=== PATIENT | female | born 1970 | race Caucasian/White ===

== ENCOUNTER → 2022-07-12 | Outpatient (CLI) | payer MEDICAID, SELFPAY ==
--- NOTE | 2022-07-12 15:59 | NEURO ---
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 Symptoms have been progressing over the last one year. No radicular neck pain. Evaluate for entrapment neuropathy. Findings: Nerve conduction studies were performed in the right and, to a limited extent, left upper extremity. The right median motor study recording the abductor pollicis brevis showed a normal amplitude, normal distal latency and normal conduction velocity. The right ulnar motor study recording the abductor digiti minimi showed a normal amplitude, normal distal latency and normal conduction velocity. Focal slowing was present across the elbow. The right median sensory response recording digit two showed a normal amplitude, latency and conduction velocity. The right ulnar sensory response recording digit five showed a normal amplitude, latency and conduction velocity. The right radial sensory response recording over the extensor snuff box showed a normal amplitude, latency and conduction velocity. The left ulnar motor study recording the abductor digiti minimi showed a normal amplitude, normal distal latency and normal conduction velocity. Focal slowing was present across the elbow. The left ulnar sensory response recording digit five showed a borderline amplitude, normal latency and borderline conduction velocity. Needle EMG of the right upper extremity and cervical paraspinal muscles was performed. No denervation was seen in any muscle. Motor units in the first dorsal interosseous were large amplitude and long duration with reduced recruitment. Motor units in the flexor digitorum profundus (IV) were distant, but recruitment was reduced. All other motor unit morphology, activation and recruitment patterns were normal. Needle EMG of the left upper extremity and cervical paraspinal muscles was performed. No denervation was seen in any muscle. Motor units in the first dorsal interosseous were large amplitude and long duration with reduced recruitment. Motor units in the flexor digitorum profundus (IV) were long duration and polyphasic with reduced recruitment. All other motor unit morphology, activation and recruitment patterns were normal. Impression: This is an abnormal study. 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 The pathophysiology is predominantly demyelination without active secondary axonal loss. In addition, there is no electrophysiologic evidence of a superimposed cervical radiculopathy. Levy Duval D.O. Multi Select Codes Neurology Neurology Interp Codes: 24433-46 Musc test done w/n test comp (interp) (Qty:2) and 36763-09 Nrv cndj test 9-10 studies (interp)
== END | disposition home or self-care (01) ==
PROVIDERS: PCP Physician Assistant Medical; Referring Provider Physician Assistant Medical; Visit Provider Physician Assistant Medical
DX: R20.0 Anesthesia of skin (principal); R29.898 Other symptoms and signs involving the musculoskeletal system
CPT/HCPCS: 95886; 95911

== ENCOUNTER → 2022-07-19 | Outpatient (CLI) | payer MEDICAID, SELFPAY ==
--- NOTE | 2022-07-19 17:05 | NEURO ---
NCS and/or EMG Patient Report Ordering Doctor: Nga Finn DATE OF SERVICE: 07/19/22 Indication: The patient reports that she awakened from sleep in November of 2021 with complete weakness and numbness of both lower extremities. The right leg gradually returned function and is now symptom free. The left continues to be numb and weak. She reports having difficulty moving the ankle. There is no associated axial or radicular back pain. Findings: Nerve conduction studies were performed in the right and left lower extremities. The right peroneal motor study recording the extensor digitorum brevis showed a normal amplitude, prolonged distal latency and normal conduction velocity. Right sural sensory response showed a reduced amplitude and normal conduction velocity. Right superficial peroneal sensory response showed a reduced amplitude and normal conduction velocity. The left peroneal motor study recording the extensor digitorum brevis was absent. The left peroneal motor study recording the tibialis anterior showed a borderline amplitude, normal distal latency and slowed conduction velocity. The left tibial motor study recording the abductor hallucis brevis was absent. Left sural sensory response was absent. Left superficial peroneal sensory response was absent. Needle EMG of the left lower extremity and lumbar paraspinal muscles was performed. No denervation was present in any muscle. Motor units in the tibialis anterior, extensor hallucis longus, medial gastrocnemius, and biceps femoris showed changes consistent with reinnervation. The vastus medialis, tensor fascia latae and paraspinal muscles were normal. Impression: This is an abnormal and complex, but limited study. 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 There is no active denervation to suggest ongoing motor axonal loss. A more generalized disorder such as a peripheral polyneuropathy is less likely given the asymmetry of nerve conduction studies and the robust sensory responses in the upper extremities on prior evaluations. Given the history (laying supine for a prolonged period) and concurrent onset of symptoms, the more subtle changes seen in the right lower extremity may be due to a similar localization. Levy Duval D.O. Multi Select Codes Neurology Neurology Interp Codes: 80397-92 Musc test done w/n test comp (interp) and 50274-66 Nrv cndj test 9-10 studies (interp)
== END | disposition home or self-care (01) ==
LOC: PSN 14:16
PROVIDERS: PCP Physician Assistant Medical; Referring Provider Physician Assistant Medical; Visit Provider Physician Assistant Medical
DX: R53.1 Weakness (principal); M48.07 Spinal stenosis, lumbosacral region; M62.81 Muscle weakness (generalized); M54.16 Radiculopathy, lumbar region
CPT/HCPCS: 95886; 95911